=== PATIENT | male | born 1965 | race Caucasian/White ===

== ENCOUNTER 2022-07-16 18:10 | Observation (INO) | payer BC ==
[2022-07-16] MEDS ORDERED: ONDANSETRON 4 MG (ODT) TAB ONE (19:32)
[2022-07-16] MEDS ORDERED: ACETAMINOPHEN 500 MG TAB ONE (19:32)
[2022-07-16 20:23] LABS: SARS-COV-2 RT PCR NEGATIVE (NEGATIVE)
[2022-07-16 20:26] LABS: Absolute Lymphocytes (CBC) 0.7 K/uL (0.7-4.9); Hematocrit 50.8 % (39.6-49.0); Lymphocytes % 3.7 % (15.3-44.8); MCV 92.6 fL (80-100); MPV 7.6 fL (7.6-11.3); RBC Red Blood Cell Count 5.48 M/uL (4.33-5.43)
[2022-07-16] MEDS ORDERED: ONDANSETRON 4 MG/2 ML VIAL ONE (20:30)
[2022-07-16] MEDS ORDERED: FAMOTIDINE 20 MG/2 ML VIAL IV ONE (20:30)
[2022-07-16 20:36] LABS: Protime INR 1.02
[2022-07-16 20:45] LABS: Albumin 3.7 g/dL (3.4-5.0); Potassium 3.3 mmol/L (3.5-5.1); Protein, Total 7.1 g/dL (6.4-8.2)
[2022-07-16 20:55] LABS: Urine Blood Negative (Negative); Urine Glucose Negative (Negative); Urine Protein 1+ (Negative); Urine Specific Gravity 1.025 (1.005-1.030); Urine pH 5.5 (5.0-7.0)
[2022-07-16] MEDS ORDERED: NA CHLORIDE 0.9% 1,000 ML ONE ×2 (21:02→21:47)
[2022-07-16 21:13] LABS: Urine Bacteria None Seen /HPF (<20); Urine Mucus 4+ /HPF (None Seen); Urine RBC <5 /HPF (None Seen)
--- NOTE | 2022-07-16 21:57 | RAD REPORT ---
EXAM DESCRIPTION: CT - Abdomen Pelvis Wo Contrast - 07/16/2022 9:20 pm CLINICAL HISTORY: Abdominal pain COMPARISON: None TECHNIQUE: Computed axial tomography of the abdomen and pelvis was obtained. IV and oral contrast we re not requested. All CT scans are performed using dose optimization technique as appropriate and may include automated exposure control or mA/KV adjustment according to patient size. FINDINGS: The evaluation of solid organs, vessels and bowel is limited secondary to the lack of con trast administration. The liver, spleen, pancreas, adrenals and kidneys appear grossly normal. The appendix is normal. Moderate diverticulosis without evidence of diverticulitis. Marked spondylosis L2-3 consisting disc space narrowing, subchondral sclerosis, osteophytes and vacuu m phenomena. Slight posterior subluxation L2 on L3. Slight anterior subluxation L5 on S1. Spondylolysis L5 Small umbilical hernia IMPRESSION: No acute abnormality is displayed.
--- NOTE | 2022-07-16 21:59 | RAD REPORT ---
EXAM DESCRIPTION: Dalila Single View07/16/2022 9:16 pm CLINICAL HISTORY: cough COMPARISON: none FINDINGS: The lungs appear clear of acute infiltrate. The heart is normal size IMPRESSION: No acute abnormalities displayed
--- NOTE | 2022-07-16 22:52 | EDPHYS ---
Physician Documentation [facility] Name: Murray Gonzalez Age: 56 yrs Sex: Male : 1965 Arrival Date: 07/16/2022 Time: 18:32 Bed 20 Private MD: ED Physician Beto Pritchard Historical: - Allergies: 07/16 19:22 No Known Allergies; as6 - Home Meds: 19:22 hydrochlorothiazide 25 mg Oral tab 1 tab once daily [Active]; atenolol 25 mg Oral tab 1 as6 tab once daily [Active]; amlodipine 10 mg tab 1 tab once daily [Active]; metformin 500 mg Oral tab 1 tab 2 times per day [Active]; - PMHx: 19:22 Diverticulitis; Hypertensive disorder; Diabetes mellitus; as6 - PSHx: 19:22 None; as6 - Immunization history:: Client reports receiving the 2nd dose of the Covid vaccine. - Social history:: Smoking status: Patient denies any tobacco usage or history of. Vital Signs: 19:12 BP 107 / 71; Pulse 102; Resp 18 S; Temp 101.8(O); Pulse Ox 91% on R/A; Weight 154.67 kg as6 (R); Height 6 ft. 3 in. (190.50 cm) (R); Pain 2/10; 21:13 BP 102 / 68; Pulse 79; Temp 98.6; Pulse Ox 93% on R/A; ke1 19:12 Body Mass Index 42.62 (154.67 kg, 190.50 cm) as6 MDM: 19:32 Patient medically screened. cp 07/16 19:26 Order name: COVID-19/FLU A+B as6 07/16 19:38 Order name: Blood Culture Adult (2) cp 07/16 19:38 Order name: CBC with Diff cp 07/16 19:38 Order name: CMP cp 07/16 19:38 Order name: Lactate w/ 2H reflex if indic. cp 07/16 19:38 Order name: Protime (+inr) cp 07/16 19:38 Order name: Urine Culture cp 07/16 19:38 Order name: Urine Microscopic Only cp 07/16 19:38 Order name: EKG; Complete Time: 19:39 cp 07/16 19:38 Order name: Accucheck; Complete Time: 20:22 cp 07/16 19:38 Order name: Cardiac monitoring; Complete Time: 20:05 cp 07/16 19:38 Order name: EKG - Nurse/Tech; Complete Time: 20:04 cp 07/16 19:38 Order name: IV Saline Lock - Large Bore; Complete Time: 20:05 cp 07/16 19:38 Order name: Labs collected and sent; Complete Time: 20:05 cp 07/16 19:38 Order name: O2 Per Protocol; Complete Time: 20:05 cp 07/16 19:38 Order name: O2 Sat Monitoring; Complete Time: 20:05 cp 07/16 19:38 Order name: Urine Dipstick-Ancillary (obtain specimen); Complete Time: 21:09 07/16 19:38 Order name: Vital Signs 07/16 20:24 Order name: COVID-19/FLU A+B; Complete Time: 20:42 EDMS 07/16 20:29 Order name: Glucose, Ancillary Testing; Complete Time: 20:42 EDMS 07/16 20:36 Order name: Protime (+INR); Complete Time: 20:42 EDMS 07/16 20:43 Order name: XRAY Chest (1 view) 07/16 20:43 Order name: CT Abd/Pelvis - IV Contrast Only cp 07/16 21:13 Order name: Urine Microscopic Only; Complete Time: 21:20 EDMS 07/16 20:56 Order name: Urine Dipstick-Ancillary; Complete Time: 21:20 EDMS 07/16 20:52 Order name: Lactate w/ 2H reflex if indic.; Complete Time: 21:20 EDMS 07/16 20:31 Order name: CBC with Automated Diff; Complete Time: 20:42 EDMS 07/16 22:33 Interpretation: Normal except: WBC 18.40; RBC 5.48; HCT 50.8; TIAGO% 88.0; LYM% 3.7; NEUT cp A 16.2. 07/16 20:46 Order name: Comprehensive Metabolic Panel; Complete Time: 21:20 EDMS 07/16 22:33 Interpretation: Normal except: NA 135; K 3.3; GLUC 159; CRE 1.60; GFR 51; ALT 63. cp 07/16 22:44 Order name: Ova And Parasites cp 07/16 22:44 Order name: Rotavirus Antigen cp 07/16 22:44 Order name: Stool Culture cp 07/16 22:44 Order name: CDIFF cp 07/16 21:58 Order name: CT; Complete Time: 22:04 EDMS 07/16 21:59 Order name: RAD; Complete Time: 22:04 EDMS Administered Medications: 19:29 Drug: Ondansetron 4 mg Route: PO; as6 19:29 Drug: Tylenol 1000 mg Route: PO; as6 20:39 Drug: Zofran (Ondansetron) 4 mg Route: IVP; Site: right antecubital; kr3 20:39 Drug: Pepcid (famotidine) 20 mg Route: IVP; Site: right antecubital; kr3 21:00 Drug: NS 0.9% 1000 ml Route: IV; Rate: 1 bolus; Site: right antecubital; ke1 21:46 Drug: NS 0.9% 1000 ml Route: IV; Rate: 1 bolus; Site: right antecubital; ke1 Disposition Summary: 07/16/22 22:51 Hospitalization Ordered Hospitalization Status: Observation cp Provider: Jesus Silva cp Location: Telemetry/MedSurg (observation) cp Condition: Stable cp Problem: new cp Symptoms: have improved cp Bed/Room Type: Standard cp Room Assignment: cp Diagnosis - Diarrhea, unspecified cp - Vomiting cp - Elevated white blood cell count cp - Fever, unspecified cp Forms: - Medication Reconciliation Form cp - SBAR form cp Signatures: Dispatcher [employer] EDAL Reece Quick FNP-C FNP-Haris1 John Pitt PA PA cp Tyron Sandy, RN RN as6 Álvaro Morgan RN RN ke1 Celeste Hunter RN RN kr3
--- NOTE | 2022-07-16 22:52 | ER ---
Nurse's Notes [facility] Name: Murray Gonzalez Age: 56 yrs Sex: Male : 1965 Arrival Date: 07/16/2022 Time: 18:32 Bed 20 Private MD: Diagnosis: Diarrhea, unspecified;Vomiting;Elevated white blood cell count;Fever, unspecified Presentation: 07/16 19:12 Chief complaint: Patient states: "I feel like I have covid, I have chills, I can't keep as6 anything down". Coronavirus screen: Client presents with at least one sign or symptom that may indicate coronavirus-19. Ebola Screen: No symptoms or risks identified at this time. Initial Sepsis Screen: Does the patient meet any 2 criteria? Temp <36.0*C (96.8*F)) or > 38.3*C (100.9*F). HR > 90 bpm. Yes Does the patient have a suspected source of infection? Yes: Productive cough/pneumonia. Risk Assessment: Do you want to hurt yourself or someone else? Patient reports no desire to harm self or others. Onset of symptoms was July 16, 2022. 19:12 Method Of Arrival: Wheelchair as6 19:12 Acuity: FREDERICK 2 as6 Triage Assessment: 20:54 General: Appears in no apparent distress. Behavior is appropriate for age. ke1 Historical: - Allergies: 19:22 No Known Allergies; as6 - Home Meds: 19:22 hydrochlorothiazide 25 mg Oral tab 1 tab once daily [Active]; atenolol 25 mg Oral tab 1 as6 tab once daily [Active]; amlodipine 10 mg tab 1 tab once daily [Active]; metformin 500 mg Oral tab 1 tab 2 times per day [Active]; - PMHx: 19:22 Diverticulitis; Hypertensive disorder; Diabetes mellitus; as6 - PSHx: 19:22 None; as6 - Immunization history:: Client reports receiving the 2nd dose of the Covid vaccine. - Social history:: Smoking status: Patient denies any tobacco usage or history of. Screenin:53 [facility] ED Fall Risk Assessment (Adult) History of falling in the last 3 months, ke1 including since admission No falls in past 3 months (0 pts) Confusion or Disorientation No (0 pts) Intoxicated or Sedated No (0 pts) Impaired Gait No (0 pts) Mobility Assist Device Used No (0 pt) Altered Elimination No (0 pt) Score/Fall Risk Level 0 - 2 = Low Risk. Abuse screen: Denies threats or abuse. Nutritional screening: No deficits noted. Tuberculosis screening: No symptoms or risk factors identified. Vital Signs: 19:12 BP 107 / 71; Pulse 102; Resp 18 S; Temp 101.8(O); Pulse Ox 91% on R/A; Weight 154.67 kg as6 (R); Height 6 ft. 3 in. (190.50 cm) (R); Pain 2/10; 21:13 BP 102 / 68; Pulse 79; Temp 98.6; Pulse Ox 93% on R/A; ke1 19:12 Body Mass Index 42.62 (154.67 kg, 190.50 cm) as6 ED Course: 18:32 Patient arrived in ED. am2 18:45 John Pitt PA is PHCP. cp 18:45 Beto Pritchard MD is Attending Physician. cp 19:21 Triage completed. as6 19:25 Arm band placed on. as6 20:00 Celeste Hunter, RN is Primary Nurse. kr3 20:22 Blood Culture Adult (2) Sent. bc6 20:22 CBC with Diff Sent. bc6 20:22 CMP Sent. bc6 20:22 Lactate w/ 2H reflex if indic. Sent. bc6 20:22 Protime (+inr) Sent. bc6 20:23 Inserted saline lock: 20 gauge in right antecubital area, using aseptic technique. bc6 20:54 Patient has correct armband on for positive identification. Bed in low position. Call ke1 light in reach. 21:09 Urine Microscopic Only Sent. rv1 21:09 Urine Culture Sent. rv1 22:50 Reece Quick FNP-C is Hospitalizing Provider. cp 22:51 Jesus Silva MD is Hospitalizing Provider. cp Administered Medications: 19:29 Drug: Ondansetron 4 mg Route: PO; as6 19:29 Drug: Tylenol 1000 mg Route: PO; as6 20:39 Drug: Zofran (Ondansetron) 4 mg Route: IVP; Site: right antecubital; kr3 20:39 Drug: Pepcid (famotidine) 20 mg Route: IVP; Site: right antecubital; kr3 21:00 Drug: NS 0.9% 1000 ml Route: IV; Rate: 1 bolus; Site: right antecubital; ke1 21:46 Drug: NS 0.9% 1000 ml Route: IV; Rate: 1 bolus; Site: right antecubital; ke1 Outcome: 22:51 Decision to Hospitalize by Provider. cp Signatures: John Pitt PA PA cp Justine Handley Ashby RN RN as6 Álvaro Morgan RN RN ke1 Celeste Hunter RN RN kr3 Liyah Partida rv1 Cally Bah 6
[2022-07-16] MEDS ORDERED: POTASSIUM 25 MEQ EFFERV TAB ONE (23:46)
[2022-07-16] MEDS ORDERED: METRONIDAZOLE 500mg IVPB 500 MG/100 ML BAG IV ONE (23:47)
[2022-07-16] MEDS ORDERED: CIPROFLOXACIN 400mg IV 400 MG/200 ML BAG IV ONE (23:47)
--- NOTE | 2022-07-16 23:49 | P.HP ---
Certification for Inpatient Patient admitted to: Observation With expected LOS: <2 Midnights Patient will require the following post-hospital care: None Practitioner: I am a practitioner with admitting privileges, knowledge of patient current condition, hospital course, and medical plan of care. Services: Services provided to patient in accordance with Admission requirements found in Title 42 Section 412.3 of the Code of Federal Regulations Patient History Date of Service: 07/16/22 Reason for admission: Fever, diarrhea History of Present Illness: 56-year-old male history of hypertension, prediabetes, osteoarthritis, previous bouts of diverticulitis presents to the emergency department for fever, vomiting, diarrhea. He reports that yesterday he had a couple episodes of vomiting but today he has had 4-5 episodes of "explosive diarrhea" which she described as brown, watery along with 5 episodes of vomiting throughout the day. He was evaluated in the emergency department his labs were significant for leukocytosis with a white blood cell count of 18.4 acute kidney injury with creatinine 1.6 GFR 51 potassium 3.3 glucose 167 lactic acid 2.0 he was febrile upon arrival to the ED, Tmax 101.8. Chest x-ray which was negative for acute findings as well as CT of the abdomen and pelvis without contrast which showed no acute abnormality. Patient with benign abdominal exam, does report headache, chills, general malaise. His neck is supple, Kernig and Brudzinski signs negative. No neurological symptoms are present. Given his marked cytosis along with persistent vomiting/diarrhea ED provider wishes to admit for further evaluation and management. He does admit to taking diclofenac twice daily as prescribed for osteoarthritis he also took 4 Aleve throughout the day yesterday. He was counseled to avoid taking additional NSAIDs with diclofenac. - Past Medical/Surgical History -: Diabetes -: Hypertension -: Osteoarthritis -: Diverticulosis/diverticulitis -: none Psychosocial/ Personal History: Patient is retired, lives at home with his . - Family History Father -: Other (see notes) Notes: Diverticulosis, hypertension Sister -: Hypertension - Social History Smoking Status: Never smoker Alcohol use: No CD- Drugs: No Caffeine use: Yes Place of Residence: Home Review of Systems 10-point ROS is otherwise unremarkable General: Fever, Chills, Malaise Gastrointestinal: Nausea, Vomiting, Abdominal Pain, Diarrhea Genitourinary: Urgency Physical Examination - Physical Exam General: Alert, In no apparent distress, Oriented x3, Obese HEENT: Atraumatic, PERRLA, Mucous membr. moist/pink, EOMI, Sclerae nonicteric Neck: Supple, 2+ carotid pulse no bruit, Without JVD or thyroid abnormality Respiratory: Clear to auscultation bilaterally, Normal air movement Cardiovascular: No edema, Regular rate/rhythm, Normal S1 S2 Capillary refill: <2 Seconds Gastrointestinal: Normal bowel sounds, No tenderness Musculoskeletal: No tenderness Integumentary: No rashes Neurological: Normal speech, Normal strength at 5/5 x4 extr, Normal tone, Normal affect - Studies Laboratory Data (last 24 hrs) 07/16/22 20:05: PT 11.2, INR 1.02 07/16/22 20:05: Sodium 135 L, Potassium 3.3 L, BUN 17, Creatinine 1.60 H, Glucose 159 H, Total Bilirubin 1.0, AST 35, ALT 63 H, Alkaline Phosphatase 61 07/16/22 20:05: WBC 18.40 H, Hgb 17.0, Hct 50.8 H, Plt Count 213 Assessment and Plan - Plan Assessment: Fever, vomiting/diarrhea Acute kidney injury Hypertension Prediabetes Osteoarthritis Plan: Fever, vomiting/diarrhea Blood cultures were obtained, CT without contrast was negative for acute findings although patient does have a history of diverticulitis. He has no abdominal tenderness on exam, his symptoms also seem to be more systemic. Concern for possible viral illness versus/food poisoning. Possibility of enteral infection considered including C. difficile, patient denies any recent antibiotic use but does have significant leukocytosis along with frequent diarrhea. Stool studies ordered including C. difficile, stool culture. We will continue antibiotics tonight with Cipro/Flagyl. Acute kidney injury Suspect this is prerenal with patient's vomiting/diarrhea in addition to his use of NSAIDs with naproxen/diclofenac. Counseled patient on avoiding these medications especially used together and holding for now. Continue IVF, recheck BMP in AM. Consult nephrology PRN, urinalysis WNL Hypertension Hold oral anti hypertensives in this acute phase, hold FLORECITA/ARB given GENA. Prediabetes Hold metformin for now, SSI, A1c in AM. Osteoarthritis Hold diclofenac. DVT PPX: Lovenox Code status: full Discharge Plan: Home Plan to discharge in: 24 Hours - Advance Directives Does patient have a Living Will: No Does patient have a Durable POA for Healthcare: No - Code Status/Comfort Care Code Status Assessed: Yes (Full code) Critical Care: No Time Spent Managing Pts Care (In Minutes): 70
[2022-07-17] MEDS ORDERED: ONDANSETRON 4 MG/2 ML VIAL IV PRN (01:37)
[2022-07-17] MEDS ORDERED: MORPHINE 2 MG/ML SYR IV PRN (01:37)
[2022-07-17] MEDS: METRONIDAZOLE 500mg IVPB 500 MG/100 ML BAG IV SCH ×3 (01:37→17:00)
[2022-07-17] MEDS ORDERED: Ringers Lactate 1,000 ML IV ONE (02:17)
[2022-07-17] MEDS ORDERED: ACETAMINOPHEN 500 MG TAB ONE ×2 (02:20→14:53)
[2022-07-17] MEDS: ACETAMINOPHEN 500 MG TAB PO PRN ×2 (02:30→14:51)
[2022-07-17] MEDS: Ringers Lactate 1,000 ML IV SCH ×2 (02:30→09:37)
[2022-07-17 02:48] LABS: Absolute Lymphocytes (CBC) 0.6 K/uL (0.7-4.9); Hematocrit 47.4 % (39.6-49.0); MCV 92.8 fL (80-100); MPV 7.6 fL (7.6-11.3)
[2022-07-17 03:07] LABS: Magnesium 1.8 mg/dL (1.6-2.4); Thyroid Stimulating Hormone 2.41 uIU/mL (0.358-3.740)
[2022-07-17 03:38] LABS: Blood Morphology Comment NOTED (NOT SEEN); Platelet Estimate ADEQ; Polychromasia 1+
[2022-07-17 03:59] VITALS: BMI 42.6
[2022-07-17] MEDS: INSULIN -REGULAR HUMAN 50 UNIT/0.5 ML ML SQ SCH ×4 (07:30→21:00)
[2022-07-17] MEDS ORDERED: METRONIDAZOLE 500mg IVPB 500 MG/100 ML BAG IV ONE (07:49)
[2022-07-17] MEDS ORDERED: CIPROFLOXACIN 400mg IV 400 MG/200 ML BAG IV ONE ×2 (07:49→22:56)
[2022-07-17] MEDS ORDERED: ENOXAPARIN 40 MG/0.4 ML SQ ONE (08:41)
[2022-07-17] MEDS ORDERED: ENOXAPARIN 40 MG/0.4 ML SQ SCH (09:00)
[2022-07-17] MEDS: CIPROFLOXACIN 400mg IV 400 MG/200 ML BAG IV SCH ×2 (09:00→21:00)
--- NOTE | 2022-07-17 16:37 | EKG ---
Test Date: 2022-07-16 Test Time: 20:31:48 [employer]: ALISW MEASUREMENT RESULTS: Intervals: Rate: 82 OK: 164 QRSD: 96 QT: 358 QTc: 418 [place]: P: 51 OK: 164 QRS: -10 T: 50 INTERPRETIVE STATEMENTS: Normal sinus rhythm Normal ECG No previous ECG available for comparison Electronically Signed On 07-17-22 16:35:54 SKIDDER DRIVER by Barrera Vail
[2022-07-18] MEDS: METRONIDAZOLE 500mg IVPB 500 MG/100 ML BAG IV SCH (01:00)
[2022-07-18] MEDS: Ringers Lactate 1,000 ML IV SCH (01:37)
[2022-07-18 02:55] LABS: Absolute Lymphocytes (CBC) 1.3 K/uL (0.7-4.9); Hematocrit 49.4 % (39.6-49.0); MCV 93.6 fL (80-100); MPV 7.6 fL (7.6-11.3); RBC Red Blood Cell Count 5.28 M/uL (4.33-5.43)
[2022-07-18 03:13] LABS: Magnesium 2.2 mg/dL (1.6-2.4); Potassium 3.7 mmol/L (3.5-5.1)
[2022-07-18] MEDS ORDERED: Ringers Lactate 1,000 ML IV ONE (04:28)
[2022-07-18] MEDS ORDERED: METRONIDAZOLE 500mg IVPB 500 MG/100 ML BAG IV ONE (04:28)
[2022-07-18 04:29] VITALS: TEMP 98.7
[2022-07-18 04:32] VITALS: BP 120/77
[2022-07-18] MEDS ORDERED: INFLUENZA VACCINE (for 6+ mo) 0.5 ML DOSE IMVAC ONE (08:00)
[2022-07-18 09:04] LABS: C.diff Antigen/Toxin Ag neg : Tox neg (NEG : NEG)
[2022-07-18 09:14] VITALS: O2SAT 93
--- NOTE | 2022-07-18 09:58 | PN ---
Date of Progress Note: 07/17/2022 Subjective: The patient was seen this morning for followup. He was lying in bed, not in distress, o verenrique feels a little better today compared to yesterday. He came into emergency room with 2 days' h istory of nausea, vomiting, and diarrhea. Denies any blood in stool. No hematemesis. Physical Examination: Vital Signs: Reviewed. This morning; temperature 98.8, pulse 86, respiratory rate 15, blood pressur e , oxygen saturation 92% on room air. HEENT: Unremarkable. Lungs: Clear to auscultation. Heart: Sounds normal. Abdomen: Soft. Bowel sounds normal. No guarding, rigidity. No distention. The patient does have some tenderness in the right lower quadrant, left lower quadrant and suprapubic region. No rebound t enderness. Bowel sounds normoactive. Extremities: No leg edema. Laboratory Data: White count this morning 14.4, hemoglobin 15.9, platelets 181. Sodium 136, potassi um 4, chloride 101, bicarb 31, BUN 17, creatinine 1.57, glucose 150. Hemoglobin A1c 6.1. Impression: 1.Acute gastroenteritis. 2.Acute kidney injury. 3.Hypokalemia. Plan: We will go ahead and continue IV fluid. Continue current IV antibiotic which is Cipro and met ronidazole. Stool for C diff result is pending. The patient is on clear liquid diet. We will advan ce diet as tolerated. He takes diclofenac at home for joint pain and I have discussed details with h im regarding long-term use of medications like diclofenac and increased risk of cardiovascular proble ms, increased risk of renal failure, and increased risk of stomach ulcer, GI bleeding, etc. and recom mended him not to use such medication. We will repeat blood work tomorrow morning and possible discharge to go home tomorrow depending on his c ondition. RUFINO/MODL Voice ID: [id number] Report ID: [id number]
--- NOTE | 2022-07-18 20:43 | DS ---
Date of Discharge: 07/18/2022 Disposition: Discharged to go home. Physical Examination: HEENT: Unremarkable. Lungs: Clear to auscultation. Heart: Sounds normal. Abdomen: Soft. Bowel sounds normal. No guarding, rigidity, tenderness, distention. Extremities: No leg edema. Laboratory Data: Upon admission; white count 18.4, hemoglobin 17, platelets 213. Yesterday; white c ount 14.4, hemoglobin 15.9, platelets 181. Today; white count 7, hemoglobin 16.7, platelets 168. Up on admission; sodium 135, potassium 3.3, chloride 100, bicarb 28, BUN 17, creatinine 1.60, glucose 15 9. Liver function tests unremarkable. Hemoglobin A1c 6.1, which was done yesterday and yesterday cr eatinine came down to 1.57, potassium 4. His TSH was 2.4. Today; sodium 136, potassium 3.7, chlorid e 99, bicarb 31, BUN 11, creatinine 1.34, glucose 127, magnesium 2.2. Discharge Medications And Instructions: 1.Continue all prior home medication except do not take any diclofenac and do not take any medicatio ns like Advil, Aleve, etc. 2.Take Cipro 500 mg 2 times a day and Flagyl 500 mg 3 times a day for 5 days and handwritten prescri ption was given to the patient to take it to his pharmacy. 3.Follow up either at my office or primary care provider of his choice in 2 weeks and the patient wi ll look into his insurance to see whether I am in his insurance panel or not and other primary care p ajcob who is taking his insurance. 4.Drink 50-60 ounces water daily. Hospital Course: A 56-year-old very pleasant male patient, admitted to the hospital after he came in to emergency room with abdominal pain, nausea, vomiting, and diarrhea. Please see dictated H and P f or more information. After the patient was evaluated in the emergency room, he was [facility] under hospitalist service and I was providing coverage for hospitalist service, so he was adm itted under my care. He was given IV fluid. Empiric IV antibiotics, Cipro and metronidazole were st arted. Initially, he was on clear liquid diet and we advanced his diet as he tolerated. He has not had any nausea, vomiting, or diarrhea after his admission to the hospital and overall he has felt muc h better. He is tolerating diet very well, ambulating well without any problem, and today he was dis charged to go home in stable condition with above-mentioned medications and instructions. Final Diagnoses: 1.Acute gastroenteritis. 2.Volume depletion. 3.Acute kidney injury. 4.Hypertension. 5.Type 2 diabetes mellitus. 6.Osteoarthritis, multiple sites. 7.Diverticulosis. RUFINO/MODL Voice ID: [id number] Report ID: [id number]
== END 2022-07-18 08:23 | disposition home or self-care (01) ==
LOC: ER 18:10 → ERHOLD 23:28
PROVIDERS: ADMIT Internal Medicine; ATTEND Internal Medicine
DX: K52.9 Noninfective gastroenteritis and colitis, unspecified (principal); R50.9 Fever, unspecified; R19.7 Diarrhea, unspecified; R11.10 Vomiting, unspecified; I10 Essential (primary) hypertension; M19.90 Unspecified osteoarthritis, unspecified site; N17.9 Acute kidney failure, unspecified; E11.9 Type 2 diabetes mellitus without complications; E87.6 Hypokalemia; E86.9 Volume depletion, unspecified; K57.90 Diverticulosis of intestine, part unspecified, without perforation or abscess without bleeding; Z23 Encounter for immunization
CPT/HCPCS: 93005; 87040 ×2; 87088; 85025 ×3; 87086; 80048 ×2; 36415 ×2; 83735 ×2; 87177; 85610; 82947 ×5; 83605; 87209; 84443; 87324; 83036; 84439; 80053; 0240U; 87425; 74176; 71045; Q0162; J1650; J0744 ×3; J7120 ×2; J7030 ×2; J2405; 81003; 81015; G0378

== ENCOUNTER 2024-06-28 16:16 | Emergency (ER) | payer BC ==
[2024-06-28] MEDS ORDERED: ONDANSETRON 4 MG/2 ML VIAL ONE (16:53)
[2024-06-28] MEDS ORDERED: ACETAMINOPHEN 500 MG TAB ONE (16:53)
[2024-06-28] MEDS ORDERED: NA CHLORIDE 0.9% 1,000 ML ONE (16:54)
[2024-06-28 17:12] LABS: Absolute Eosinophils 0.1 K/uL (0-0.5); Absolute Lymphocytes (CBC) 0.6 K/uL (0.7-4.9); Absolute Monocytes 1.1 K/uL (0.1-1.3); Absolute Neutrophil 4.5 K/uL (1.8-8.0); Basophils % 0.5 % (0-1.3); Eosinophils % 1.8 % (0-4.4); Hematocrit 40.8 % (39.6-49.0); Hemoglobin 14.6 g/dL (13.6-17.9); Lymphocytes % 9.9 % (15.3-44.8); MCH 32.4 pg (27.0-35.0); MCHC 35.9 g/dL (32.0-36.0); MCV 90.5 fL (80-100); MPV 7.8 fL (7.6-11.3); Monocytes % 16.9 % (3.3-12.3); Neutrophils % 70.9 % (41.7-73.7); Nucleated Red Blood Cells % 0.1 % (0-0); Platelets 136 thou/uL (152-406); Red Cell Distribution Width 13.2 % (12.1-15.2)
[2024-06-28 17:31] LABS: Albumin 3.1 g/dL (3.4-5.0); Anion Gap 7.8 mEq/L (5.0-15.0); Bilirubin Total 0.6 mg/dL (0.2-1.0); Globulin 3.2 g/dL (2.3-3.5); Potassium 3.8 mEq/L (3.5-5.1); Protein, Total 6.3 g/dL (6.4-8.2)
[2024-06-28 17:39] LABS: SARS-CoV-2 Antigen CONTROL BLUE LINE VIS/BG OK; SARS-CoV-2 Antigen Rapid Res Negative (Negative)
--- NOTE | 2024-06-28 17:41 | EDPHYS ---
Physician Documentation [facility] Name: Murray Gonzalez Age: 58 yrs Sex: Male : 1965 Arrival Date: 06/28/2024 Time: 16:16 Bed 4 Private MD: ED Physician Eddie Cano HPI: 06/28 17:05 This 58 yrs old Male presents to ER via Ambulatory with complaints of Flu Symptoms. kb 17:05 Pt is a 58 year old male who presents for cough, congestion, subjective fever, chills, kb bodyaches, n/v/d that started at 0100 today. Denies abd pain. . Historical: - Allergies: 16:34 No Known Allergies; aa5 - PMHx: 16:34 diabetes mellitus; Diverticulitis; Hypertensive disorder; Hypercholesterolemia; aa5 - Immunization history:: Adult Immunizations unknown. - Infectious Disease History:: Denies. - Social history:: Smoking status: Patient denies any tobacco usage or history of. ROS: 17:04 Constitutional: As per HPI kb Exam: 17:04 Constitutional: This is a well developed, well nourished patient who is awake, alert, kb and in no acute distress. Head/Face: Normocephalic, atraumatic. ENT: Moist Mucous membranes Cardiovascular: Regular rate Respiratory: Respirations even and unlabored. No increased work of breathing. Talking in full sentences Abdomen/GI: Soft, non-tender. No distention Skin: Warm, dry with normal turgor. Normal color. MS/ Extremity: Pulses equal, no cyanosis. Neurovascular intact. Full, normal range of motion. Neuro: Awake and alert, GCS 15, oriented to person, place, time, and situation. Vital Signs: 16:33 BP 123 / 69; Pulse 103; Resp 20 S; Temp 100.5(O); Pulse Ox 94% on R/A; Weight 135.17 kg aa5 (R); Height 6 ft. 3 in. (R); 18:02 BP 118 / 62; Pulse 94; Resp 17; Temp 99.2; Pulse Ox 96% ; ko1 16:33 Body Mass Index 37.25 (135.17 kg, 190.5 cm) aa5 MDM: 16:25 Medical Screening Exam initiated kb 17:04 Differential diagnosis: flu, covid, uri, strep. Data reviewed: vital signs, nurses kb notes. 17:40 Independent interpretation of the following test(s) in the Emergency Department X-Ray: kb My interpretation is no pneumonia. Counseling: I had a detailed discussion with the patient and/or guardian regarding the historical points, exam findings, and any diagnostic results supporting the discharge/admit diagnosis, lab results, radiology results, the need for outpatient follow up, a family practitioner, to return to the emergency department if symptoms worsen or persist or if there are any questions or concerns that arise at home. 06/28 16:41 Order name: Flu; Complete Time: 17:40 kb 06/28 16:41 Order name: SARS-COV-2 Antigen Rapid; Complete Time: 17:40 kb 06/28 16:41 Order name: Strep kb 06/28 16:41 Order name: CBC with Diff; Complete Time: 17:20 kb 06/28 16:41 Order name: CMP; Complete Time: 17:31 kb 06/28 17:40 Order name: Throat Culture EDLA 06/28 16:42 Order name: Chest Single View XRAY; Complete Time: 17:46 kb 06/28 16:41 Order name: IV Saline Lock; Complete Time: 17:07 kb 06/28 16:41 Order name: Labs collected and sent; Complete Time: 17:07 kb Administered Medications: 17:07 Drug: Ondansetron IVP 4 mg IVP once; over 2 minutes Route: IVP; Site: right antecubital;ko1 17:22 Follow up: Response: No adverse reaction ko1 17:07 Drug: NS 0.9% IV 1000 ml IV at 1 bolus Per protocol; to be given as a bolus over 60 ko1 minutes Route: IV; Rate: 1 bolus; Site: right antecubital; 17:45 Follow up: Response: No adverse reaction; IV Status: Completed infusion; IV Intake: ko1 1000ml 17:07 Drug: Acetaminophen PO 1000 mg PO once Route: PO; ko1 17:37 Follow up: Response: No adverse reaction ko1 17:48 Drug: Oseltamivir PO 75 mg PO once Route: PO; ko1 18:02 Follow up: Response: No adverse reaction; Medication administered at discharge. ko1 Disposition Summary: 06/28/24 17:41 Discharge Ordered Notes: Location: Home kb Condition: Stable kb Diagnosis - Influenza due to identified novel influenza A virus kb Followup: kb - With: Emergency Department - When: As needed - Reason: Worsening of condition Followup: kb - With: Private Physician - When: 2 - 3 days - Reason: Recheck today's complaints, Continuance of care, Re-evaluation by your physician Discharge Instructions: - Discharge Summary Sheet kb - Influenza, Adult, [id number] kb Forms: - Medication Reconciliation Form kb - Antibiotic Education kb - Prescription Opioid Use kb - Patient Portal Instructions kb - Leadership Thank You Letter kb Prescriptions: - Zofran 4 mg Oral tablet - take 1 tablet ORAL route every 6 hours As needed; 12 tablet; Refills: 0, kb Product Selection Permitted - Tamiflu 75 mg Oral capsule - take 1 tablet ORAL route every 12 hours for 5 days; 10 tablet; Refills: 0, kb Product Selection Permitted Signatures: Dispatcher [employer] EDMS Suzy Wilson FNP-C Gail Lincoln, RN RN aa5 Tita Raya, RN RN ko1 Corrections: (The following items were deleted from the chart) 16:42 16:42 Influenza Screen (A \T\ B)+BA.LAB.BRZ ordered. EDMS EDMS 16:42 16:42 SARS-COV-2 Antigen Rapid+I.LAB.BRZ ordered. EDMS EDMS 16:42 16:42 Group A Streptococcus Rapid Sc+BA.LAB.BRZ ordered. EDMS EDMS 16:42 16:42 CBC+H.LAB.BRZ ordered. EDMS EDMS 16:42 16:42 COMPREHENSIVE METABOLIC PANEL+C.LAB.BRZ ordered. EDMS EDMS
--- NOTE | 2024-06-28 17:41 | ER ---
Nurse's Notes [facility] Name: Murray Gonzalez Age: 58 yrs Sex: Male : 1965 Arrival Date: 06/28/2024 Time: 16:16 Bed 4 Private MD: Diagnosis: Influenza due to identified novel influenza A virus Presentation: 06/28 16:33 Chief complaint: Patient states: cough, headache, chills, vomiting, and diarrhea that aa5 began today around 0100. Coronavirus screen: cough unrelated to allergies, fever. Ebola Screen: Patient denies travel to an Ebola-affected area in the 21 days before illness onset. Initial Sepsis Screen: Does the patient meet any 2 criteria? HR > 90 bpm. Does the patient have a suspected source of infection? No. Patient's initial sepsis screen is negative. Risk Assessment: Do you want to hurt yourself or someone else? Patient reports no desire to harm self or others. Onset of symptoms was June 28, 2024. 16:33 Acuity: FREDERICK 3 aa5 16:33 Method Of Arrival: Ambulatory aa5 Historical: - Allergies: 16:34 No Known Allergies; aa5 - PMHx: 16:34 diabetes mellitus; Diverticulitis; Hypertensive disorder; Hypercholesterolemia; aa5 - Immunization history:: Adult Immunizations unknown. - Infectious Disease History:: Denies. - Social history:: Smoking status: Patient denies any tobacco usage or history of. Screenin:07 [facility] ED Fall Risk Assessment (Adult) History of falling in the last 3 months, ko1 including since admission No falls in past 3 months (0 pts) Confusion or Disorientation No (0 pts) Intoxicated or Sedated No (0 pts) Impaired Gait No (0 pts) Mobility Assist Device Used Yes (1 pt) Altered Elimination No (0 pt) Score/Fall Risk Level 0 - 2 = Low Risk Oriented to surroundings, Maintained a safe environment, Educated pt \T\ family on fall prevention, incl call for assistance when getting out of bed, Assessed \T\ reinforced patient's understanding of fall precautions, Hourly rounding (assess needs \T\ fall precautionary measures) done. Abuse screen: Denies threats or abuse. Denies injuries from another. Nutritional screening: No deficits noted. Tuberculosis screening: No symptoms or risk factors identified. Assessment: 17:07 General: Appears in no apparent distress. ill, Behavior is calm, cooperative, ko1 appropriate for age. Pain: Complains of pain in generalized body aches. Neuro: No deficits noted. Cardiovascular: No deficits noted. Respiratory: No deficits noted. Reports cough that is non-productive. GI: Reports diarrhea, nausea, vomiting. : No deficits noted. No signs and/or symptoms were reported regarding the genitourinary system. EENT: Reports nasal congestion. Derm: Reports pain that is 5 out of 10 on a pain scale. Musculoskeletal: Reports pain in generalized. Vital Signs: 16:33 BP 123 / 69; Pulse 103; Resp 20 S; Temp 100.5(O); Pulse Ox 94% on R/A; Weight 135.17 kg aa5 (R); Height 6 ft. 3 in. (R); 18:02 BP 118 / 62; Pulse 94; Resp 17; Temp 99.2; Pulse Ox 96% ; ko1 16:33 Body Mass Index 37.25 (135.17 kg, 190.5 cm) aa5 ED Course: 16:20 Patient arrived in ED. [id number] 16:25 Su[facility]C [facility] kb 16:25 Eddie Cano MD is Attending Physician. kb 16:33 Arm band placed on Patient placed in an exam room, on a stretcher. aa5 16:34 Triage completed. aa5 16:48 Romario Khan, NAYANA is Primary Nurse. bp 17:07 Patient has correct armband on for positive identification. Bed in low position. Call ko1 light in reach. Side rails up X2. Provided Education on: labs, meds. Pulse ox on. NIBP on. Door closed. Noise minimized. Lights dimmed. Pillow given. 17:07 Strep Sent. ko1 17:07 SARS-COV-2 Antigen Rapid Sent. ko1 17:07 Flu Sent. ko1 17:07 CMP Sent. ko1 17:07 Initial lab(s) drawn, by me, sent to lab. COVID swab sent to lab. Flu and/or RSV swab ko1 sent to lab. Strep swab sent to lab. Inserted saline lock: 20 gauge in right antecubital area, using aseptic technique. Blood collected. Flushed with 10 mL NS. 17:19 Tita Raya, RN is Primary Nurse. ko1 17:33 Chest Single View XRAY In Process Unspecified. EDMS 18:02 No provider procedures requiring assistance completed. IV discontinued, intact, ko1 bleeding controlled, No redness/swelling at site. Pressure dressing applied. Administered Medications: 17:07 Drug: Ondansetron IVP 4 mg IVP once; over 2 minutes Route: IVP; Site: right antecubital;ko1 17:22 Follow up: Response: No adverse reaction ko1 17:07 Drug: NS 0.9% IV 1000 ml IV at 1 bolus Per protocol; to be given as a bolus over 60 ko1 minutes Route: IV; Rate: 1 bolus; Site: right antecubital; 17:45 Follow up: Response: No adverse reaction; IV Status: Completed infusion; IV Intake: ko1 1000ml 17:07 Drug: Acetaminophen PO 1000 mg PO once Route: PO; ko1 17:37 Follow up: Response: No adverse reaction ko1 17:48 Drug: Oseltamivir PO 75 mg PO once Route: PO; ko1 18:02 Follow up: Response: No adverse reaction; Medication administered at discharge. ko1 Medication: 17:07 VIS not applicable for this client. ko1 Intake: 17:45 IV: 1000ml; Total: 1000ml. ko1 Outcome: 17:41 Discharge ordered by . kb 18:02 Discharged to home via wheelchair, with family, ko1 18:02 Condition: stable 18:02 Discharge instructions given to patient, family, Instructed on discharge instructions, follow up and referral plans. medication usage, Demonstrated understanding of instructions, follow-up care, medications, Prescriptions given X 2, 18:03 Patient left the ED. ko1 Signatures: Dispatcher [employer] EDDC Suzy Wilson, GRINDING MACHINE OPERATOR-C GRINDING MACHINE OPERATOR-Gail Morris, RN RN aa5 Romario Khan RN RN bp Jeffries, Jennifer jj6 Tita Raya RN RN ko1
--- NOTE | 2024-06-28 17:46 | RAD REPORT ---
EXAMINATION: ONE VIEW CHEST XR CLINICAL INDICATION: COUGH TECHNIQUE: Frontal chest projection is submitted. Examination is limited by patient positioning and t echnique. COMPARISON: 02/26/2023 FINDINGS: The lungs are well inflated and clear. The heart is upper limit of normal in size. No displaced fract ures identified. IMPRESSION: No acute intrathoracic abnormalities.
[2024-06-28] MEDS ORDERED: OSELTAMIVIR 75 MG CAP PO ONE (17:47)
[2024-06-28 18:16] VITALS: BP 118/62; TEMP 99.2; O2SAT 96
== END 2024-06-28 18:03 | disposition home or self-care (01) ==
LOC: ER 16:16
DX: J10.1 Influenza due to other identified influenza virus with other respiratory manifestations (principal); Z11.52 Encounter for screening for COVID-19
CPT/HCPCS: 96361; 87070; 85025; 36415; 87081; 80053; 87804 ×2; 71045; 96374; 99284; 87811; J2405; J7030